=== PATIENT | female | born 1995 | race Caucasian/White ===

== ENCOUNTER 2017-07-26 10:41 | Inpatient (IN) | payer OTHER ==
[~2017-07-26] VITALS: Ht 172.7 cm; Wt 63.5 kg
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
[2017-07-26] MEDS ORDERED: ONDANSETRON HCL/PF 4 MG/2 ML VIAL ONE ×2 (11:15→12:26)
[2017-07-26] MEDS ORDERED: MORPHINE SULFATE INJ 2 MG/ML DISP.SYRIN ONE (11:15)
--- NOTE | 2017-07-26 11:25 | NUR ---
RAC #20 IV ACCESS BLOOD SAMPLE COLLECTEDS ENT TO LAB
[2017-07-26] MEDS ORDERED: ONDANSETRON HCL/PF 4 MG/2 ML VIAL IVP ONE (11:30)
[2017-07-26] MEDS ORDERED: MORPHINE SULFATE INJ 2 MG/ML DISP.SYRIN IV ONE (11:30)
[2017-07-26] MEDS ORDERED: IV NS 0.9% 1,000 ML BAG IV ONE (11:30)
[2017-07-26 11:39] LABS: BASOPHILS % (AUTO) 0.3 % (0.0-2.0); EOSINOPHILS % (AUTO) 0.1 % (0.0-6.0); HEMATOCRIT 45 % (33-45); HEMOGLOBIN 15.4 g/dL (11.5-14.8); LYMPHOCYTES # (AUTO) 1.4 /CMM (0.8-4.8); MEAN CORPUSCULAR HEMOGLOBIN 32 PG (26.0-33.0); MEAN CORPUSCULAR HGB CONC 34 g/dl (31.0-36.0); MEAN CORPUSCULAR VOLUME 93 fL (82-100); MONOCYTES # (AUTO) 0.5 /CMM (0.1-1.30); MONOCYTES % (AUTO) 4.4 % (2.0-12.0); NEUTROPHILS # (AUTO) 8.8 /CMM (1.8-8.9); NEUTROPHILS % (AUTO) 82.2 % (43.0-81.0); PLATELET COUNT (AUTO) 250 /CMM (150-450); RDW COEFFICIENT OF VARIATION 12.8 (11.5-15.0); RED BLOOD CELL COUNT(AUTO) 4.86 MIL/uL (4.0-5.2); WHITE BLOOD COUNT (AUTO) 10.7 K/uL (4.3-11.0)
[2017-07-26 11:51] LABS: CALCIUM, SERUM 9.5 mg/dL (8.5-10.1); CREATININE 0.9 mg/dL (0.6-1.3); POTASSIUM 3.4 mmol/L (3.5-5.1)
[2017-07-26 11:53] LABS: INR 0.93 (0.87-1.13); PROTHROMBIN TIME 9.7 SECS (9.5-12.7)
[2017-07-26 11:58] LABS: ALBUMIN 4.7 g/dL (3.4-5.0); BILIRUBIN,DIRECT 0.1 mg/dL (0.0-0.2); BILIRUBIN,TOTAL 0.8 mg/dL (0.2-1.0); TOTAL PROTEIN, SERUM 8.5 g/dL (6.4-8.2)
[2017-07-26] MEDS ORDERED: IOHEXOL-300 100 ML VIAL IV ONE (12:25)
[2017-07-26] MEDS ORDERED: IV NS 0.9% 250 ML IV ONE (12:25)
[2017-07-26] MEDS ORDERED: HYDROMORPHONE 1 MG/1 ML DISP.SYRIN ONE (12:26)
[2017-07-26] MEDS ORDERED: HYDROMORPHONE 1 MG/1 ML DISP.SYRIN IV ONE (12:30)
[2017-07-26] MEDS ORDERED: ONDANSETRON HCL/PF - ER 4 MG/2 ML VIAL IV ONE (12:30)
--- NOTE | 2017-07-26 12:30 | NUR ---
PT TAKENT TO CT
--- NOTE | 2017-07-26 13:14 | NUR ---
CALLED [facility], I REQUESTED FOR DIRECTOR FINANCIAL ANALYSIS SPINE SURGERY MD, THEY NOTIFIED ME THAT THEY WILL PAGE THE DIRECTOR FINANCIAL ANALYSIS, NESTOR GILLIAM.
--- NOTE | 2017-07-26 13:45 | NUR ---
URINE SAMPLE COLLECTED SENT TO LAB
--- NOTE | 2017-07-26 13:48 | NUR ---
CALLED [employer], SETTER JUICE PACKAGING MACHINES WAS PAGED.
[2017-07-26 13:50] LABS: APPEARANCE,URINE Clear (CLEAR); BILIRUBIN,URINE Negative (NEGATIVE); BLOOD, URINE Negative Ery/uL (NEGATIVE); COLOR,URINE Yellow (YELLOW); KETONES,URINE Trace (NEGATIVE); LEUKOCYTE ESTERASE ,URINE Negative (NEGATIVE); NITRITE, URINE Negative (NEGATIVE); PH,URINE 7.5 (5.0-8.0); PROTEIN,URINE Negative (NEGATIVE); UGLUCOSE Negative (NEGATIVE); UROBILINOGEN,URINE 0.2 EU/dL (0.2)
[2017-07-26] MEDS ORDERED: NORE-83 PO (13:52)
--- NOTE | 2017-07-26 14:35 | NUR ---
311-1 MS NURSE HAKEEM
--- NOTE | 2017-07-26 14:41 | NUR ---
GAVE REPORT TO MARK RUIZ MEDSURG DR POTTER ADMITTING LUMBAR FX DX ROOM 311-1
[2017-07-26 15:00] VITALS: BP 115/69
--- NOTE | 2017-07-26 15:00 | NUR ---
MS RN ADMITTING NOTE PATIENT CAME TO THE UNIT ACCOMPANIED BY GARMENT MANUFACTURER IN STABLE CONDITION. 21 Y/O FEMALE, ALERT, ORIENTED X4, ANXIOUS. PRESENTS WITH NON LABORED BREATHINGS. CHEST IS RAISING EQUALLY, BILATERALLY. REPORTS PAIN RATING 5/10 IN LOWER BACK AREA. PATIENT IS SAFELY MOVED TO BED. BED IS LOCKED, IN LOWEST POSITION, SIDE RAILS UP X2. PATIENT IS EDUCATION ON HOW TO USE CALL LIGHT VIA TEACH BACK METHOD. VERBALIZED UNDERSTANDING. ALL NEEDS ARE ATTENDED TO. WILL CONTINUE TO MONITOR AND ASSESS.
--- NOTE | 2017-07-26 15:16 | NUR ---
MS RN NOTE CALLED [employer] AND LEFT A MESSAGE FOR DR. POTTER INFORMING OF PATIENT'S ARRIVAL.
[2017-07-26 15:30] VITALS: BP 115/69
[2017-07-26] MEDS ORDERED: ACETAMINOPHEN 325 MG TABLET PO PRN (15:30)
[2017-07-26] MEDS ORDERED: Z GUARD REMEDY 2 OZ OINT TP PRN (15:30)
[2017-07-26] MEDS ORDERED: MAGNESIUM HYDROXIDE 30 ML UDC PO PRN (15:30)
[2017-07-26] MEDS ORDERED: MAG HYDROX/AL HYDROX/SIMETH 30 ML UDC PO PRN (15:30)
[2017-07-26] MEDS ORDERED: ZOLPIDEM TARTRATE 5 MG TABLET PO PRN (15:30)
[2017-07-26] MEDS ORDERED: ONDANSETRON HCL/PF 4 MG/2 ML VIAL IVP PRN (15:30)
[2017-07-26] MEDS ORDERED: MORPHINE SULFATE INJ 2 MG/ML DISP.SYRIN IV PRN (15:30)
[2017-07-26] MEDS: ENOXAPARIN SODIUM 40 MG/0.4 ML DISP.SYRIN SQ SCH (16:29)
--- NOTE | 2017-07-26 18:38 | NUR ---
MS RN NOTE CALLED [employer] TO REPORT ABOUT ORTHO CONSULT RESULTS TO DR POTTER. AWAITING A RETURN CALL FOR THE DOCTOR
--- NOTE | 2017-07-26 18:56 | NUR ---
MS RN CLOSING NOTE PATIENT IS RESTING IN BED AWAKE, ALERT WITH THE FRIEND AT THE BEDSIDE. BED IS LOCKED AT LOWEST POSITION, SIDE RAILS UP X 2. CALL LIGHT WITHIN REACH. ALL NEEDS ATTENDED TO. WILL ENDORSE TO THE TOOLS AND PARTS ATTENDANT NURSE FOR DEEJAY.
[2017-07-26 20:27] VITALS: BP 114/64
[2017-07-26] MEDS: HYDROCODONE/APAP 10/325MG 1 EA TABLET PO PRN (20:50)
--- NOTE | 2017-07-26 21:27 | NUR ---
A/a/o times 4 pleasant and coopertive no distress noted or voiced
--- NOTE | 2017-07-26 22:00 | NUR ---
MS/RN ASSUMED CARE FOR CONTINUITY OF CARE. PATIENT AWAKE, ALERT, ORIENTED, COMFORTABLE, NO C/O PAIN AT THIS TIME, NO DISTRESS NOTED, CALL LIGHT IN REACH. WILL MONITOR.
[2017-07-27] MEDS: HYDROCODONE/APAP 5/325MG 1 EACH TABLET PO PRN ×3 (00:54→18:18)
--- NOTE | 2017-07-27 01:59 | NUR ---
MS/RN PATIENT IS SLEEPING AT THIS TIME, AROUSABLE, APPEAR COMFORTABLE, NO SIGNS OF DISTRESS NOTED, CALL LIGHT IN REACH. WILL CONTINUE TO MONITOR.
--- NOTE | 2017-07-27 06:12 | NUR ---
MS/RN STILL SLEEPING, AROUSABLE, COMFORTABLE, BREATHING EVEN AND UNLABORED. ALL NEEDS ATTENDED AT THIS TIME. WILL CONTINUE TO MONITOR.
--- NOTE | 2017-07-27 07:39 | NUR ---
MS RN: INITIAL NOTE RECEIVED PT A/OX4. NO DISTRESS NOTED. NO PAIN NOTED. ON ROOM AIR. NO SOB NOTED.IS ON BEDREST. USES BEDPAN. ON FALL RISK. IV ON R AC #20 HEP LOCK. NO IV FLUIDS RUNNING. ON REGULAR/VEGAN DIET. RESTING COMFORTABLY IN BED. CALL LIGHT WITHIN REACH.
[2017-07-27 07:59] LABS: BASOPHILS % (AUTO) 0.6 % (0.0-2.0); EOSINOPHILS % (AUTO) 0.7 % (0.0-6.0); HEMATOCRIT 38 % (33-45); LYMPHOCYTES # (AUTO) 1.9 /CMM (0.8-4.8); LYMPHOCYTES % (AUTO) 33.7 % (20.0-44.0); MEAN CORPUSCULAR HEMOGLOBIN 32 PG (26.0-33.0); MEAN CORPUSCULAR HGB CONC 35 g/dl (31.0-36.0); MEAN CORPUSCULAR VOLUME 94 fL (82-100); MONOCYTES # (AUTO) 0.5 /CMM (0.1-1.30); MONOCYTES % (AUTO) 9.8 % (2.0-12.0); NEUTROPHILS # (AUTO) 3.1 /CMM (1.8-8.9); NEUTROPHILS % (AUTO) 55.2 % (43.0-81.0); PLATELET COUNT (AUTO) 203 /CMM (150-450); RDW COEFFICIENT OF VARIATION 12.6 (11.5-15.0); RED BLOOD CELL COUNT(AUTO) 4.01 MIL/uL (4.0-5.2); WHITE BLOOD COUNT (AUTO) 5.6 K/uL (4.3-11.0)
[2017-07-27 08:00] VITALS: BP 106/61
[2017-07-27 08:23] LABS: THYROID STIMULATING HORMONE 4.701 uIU/mL (0.358-3.74)
[2017-07-27 08:25] LABS: CALCIUM, SERUM 8.1 mg/dL (8.5-10.1); CREATININE 0.9 mg/dL (0.6-1.3); MAGNESIUM 1.9 mg/dL (1.8-2.4); PHOSPHORUS 4.6 mg/dL (2.5-4.9); POTASSIUM 4.1 mmol/L (3.5-5.1)
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
[2017-07-27] MEDS: ENOXAPARIN SODIUM 40 MG/0.4 ML DISP.SYRIN SQ SCH (15:29)
--- NOTE | 2017-07-27 15:32 | NUR ---
PT TAKEN TO NUCLEAR MEDICINE FOR MRI OF SPINE. PT STABLE.
[2017-07-27 16:00] VITALS: BP 112/65
--- NOTE | 2017-07-27 16:29 | NUR ---
PT RETURNED FROM MRI OF SPINE. PT STABLE. NO PAIN NOTED. RESTING IN BED COMFORTABLY
--- NOTE | 2017-07-27 18:36 | NUR ---
MS RN: CLOSING NOTE PT A/OX4. NO DISTRESS NOTED. PAIN CONTROLLED WITH PAIN MANAGEMENT. TOOK ALL MEDICATIONS ON TIME. NO ADVERSE REACTIONS NOTED. NO N/V NOTED. BEDREST. SKIN INTACT. USING BEDPAN. R AC #20 HEP LOCK. MRI COMPLETE. FATHER AT BEDSIDE. FATHER WANTED TO D/C DAUGHTER HOME BEFORE BEING SEEN BY MD BEST. CHARGE NURSE NOTIFIED. EXPLAINED RISKS AND BENEFITS. MD BEST SPOKE TO FATHER AND INFORMED HIM ABOUT THE NEED FOR NUEROSURGEON CONSULT BEFORE D/C. CONTACTED MD POTTS FOR CONSULTATION. ORDERED MRI AND BACK BRACE. BACK BRACE COULD NOT BE PROVIDED DUE TO SUPPLIER BEING CLOSED ON WEEKENDS. FAXED ALL INFORMATION, CALLED AND LEFT A MSG. MD POTTS STATED PT CAN BE D/C HOME WITH SOFT BACK BRACE AND FOLLOW UP WITH HIM IN ONE WEEK AND HE WILL BE COMING INTO [place] BY 8PM TONIGHT IF THEY CHOOSE TO WAIT. FATHER DECIDED TO TRANSFER DAUGHTER TO [facility]. ALL INFORMATION ABOUT TRANSFER GIVEN TO PATIENT AND FATHER. FATHER DECIDED TO WAIT FOR NEURO SURGEON TO COME. CONTACTED MD BEST AND GOT AN ORDER FOR D/C. CONTACTED MD POTTS AND NOTIFIED HIM THAT FATHER AND PATIENT WILL BE WAITING TO SEE HIM. REPORT WILL BE GIVEN TO NEXT SHIFT NURSE. PT IS RESTING COMFORTABLY IN BED. CALL LIGHT WITHIN REACH.
[2017-07-27 20:00] VITALS: BP 111/73
[2017-07-27] MEDS: HYDROCODONE/APAP 10/325MG 1 EA TABLET PO PRN (22:09)
--- NOTE | 2017-07-28 06:01 | NUR ---
2000:patient aao4, vss, no s/s of distress, c/o of pain to back relieved with pain medication (see emar). DC orders written. Patient to leave with back brace after being seen by neuro. Per prior shift, attempts to provide back brace unsuccessful. Neuro MD made aware and soft brace provided. 0700: discharge pending back brace. patient and family aware. MD aware. will endorse do oncoming RN
[2017-07-28 06:59] LABS: BASOPHILS # (AUTO) 0.1 /CMM (0.0-0.2); BASOPHILS % (AUTO) 0.8 % (0.0-2.0); EOSINOPHILS # (AUTO) 0.1 /CMM (0.0-0.7); EOSINOPHILS % (AUTO) 1.7 % (0.0-6.0); HEMATOCRIT 39 % (33-45); HEMOGLOBIN 13.4 g/dL (11.5-14.8); LYMPHOCYTES # (AUTO) 2.2 /CMM (0.8-4.8); MEAN CORPUSCULAR HEMOGLOBIN 32 PG (26.0-33.0); MEAN CORPUSCULAR HGB CONC 34 g/dl (31.0-36.0); MEAN CORPUSCULAR VOLUME 92 fL (82-100); MONOCYTES # (AUTO) 0.6 /CMM (0.1-1.30); MONOCYTES % (AUTO) 9.2 % (2.0-12.0); NEUTROPHILS # (AUTO) 3.5 /CMM (1.8-8.9); NEUTROPHILS % (AUTO) 54.3 % (43.0-81.0); PLATELET COUNT (AUTO) 201 /CMM (150-450); RDW COEFFICIENT OF VARIATION 12.3 (11.5-15.0); RED BLOOD CELL COUNT(AUTO) 4.21 MIL/uL (4.0-5.2); WHITE BLOOD COUNT (AUTO) 6.4 K/uL (4.3-11.0)
--- NOTE | 2017-07-28 07:05 | NUR ---
MS RN OPENING NOTES RECEIVED PT FROM NIGHTSHIFT NURSE IN STABLE CONDITION. PT IS A/O X4. NO SOB OR SIGNS OF DISTRESS NOTED. BREATHING IS EVEN AND UNLABORED. PT IS BEDREST AT THIS TIME DUE TO LOWER BACK INJURY. IV PRESENT ON RIGHT AC 20G. IV IS PATENT AND INTACT. NO REDNESS OR SIGNS OF INFILTRATION NOTED. PT IS CURRENTLY AWAITING TLSO BACK BRACE. WILL FOLLOW UP WITH DISTRIBUTING COMPANY, HOWEVER ACCORDING TO THE NIGHTSHIFT NURSE AND PREVIOUS DAY SHIFT NURSE, THE COMPANY IS CLOSED ON THE WEEKEND. ACCORDING TO DR. DORMAN, PT CAN NOT BE D/C WITHOUT A BRACE. BED IN LOW LOCKED POSITION, SIDE RAILS UP X2, CALL LIGHT WITHIN REACH, BED ALARM ON. WILL CONTINUE TO MONITOR.
[2017-07-28 07:13] LABS: CALCIUM, SERUM 8.7 mg/dL (8.5-10.1); CREATININE 0.8 mg/dL (0.6-1.3); MAGNESIUM 1.7 mg/dL (1.8-2.4); PHOSPHORUS 4.9 mg/dL (2.5-4.9); POTASSIUM 3.9 mmol/L (3.5-5.1)
[2017-07-28 08:00] VITALS: BP 111/69
[2017-07-28] MEDS ORDERED: HYDR-3658 PO (10:14)
[2017-07-28] MEDS ORDERED: DOCU-25 PO (10:14)
--- NOTE | 2017-07-28 10:31 | NUR ---
MS RN NOTES PT INSTRUCTED MULTIPLE TIMES TO STAY IN BED, CALL FOR ASSISTANCE AND USE BED FELTON WHEN NEEDED BUT IS NONCOMPLIANT. SHE INSISTS ON INDEPENDENTLY DOING HER ADLS ALONG WITH GOING TO THE BATHROOM BY HERSELF. BED IN LOW LOCKED POSITION, BED ALARM ON, CALL LIGHT WITHIN REACH. WILL CONTINUE TO MONITOR FOR SAFETY
[2017-07-28] MEDS: Magnesium 1GM/D5W 100ML PREMIX 100 ML IV SCH ×2 (10:40→11:58)
--- NOTE | 2017-07-28 13:20 | NUR ---
MS MANAGER FRONT OFFICE NOTES PT LEFT FACILITY IN STABLE CONDITION WITH BRACE ON. ALL NEEDS WERE MET DURING SHIFT AND ORDERS CARRIED OUT ACCORDINGLY. PT. WAS SEEN BY PHYSICAL THERAPY BEFORE LEAVING WHO INSTRUCTED HER ON PROPER BACK BRACE USE. PT VERBALIZED UNDERSTANDING OF INSTRUCTIONS ALONG WIT ALL DISCHARGE INSTRUCTIONS. PT SIGNED ALL DISCHARGE PAPERWORK. SHE LEFT VIA PRIVATE VEHICLE DRIVEN BY HER FATHER.
== END 2017-07-28 13:20 | disposition home health service (06) | DRG 552 ==
LOC: ER 10:42 → MED 14:46
PROVIDERS: ADMIT Internal Medicine; ATTEND Internal Medicine
DX: S32.019A Unspecified fracture of first lumbar vertebra, initial encounter for closed fracture (principal); E83.42 Hypomagnesemia; E87.6 Hypokalemia; V43.52XA Car driver injured in collision with other type car in traffic accident, initial encounter; Y93.9 Activity, unspecified; Y92.410 Unspecified street and highway as the place of occurrence of the external cause
CPT/HCPCS: 36415; 71010-TC; 72131-TC; 72148-TC; 80048-TC; 80076-TC; 81000-TC; 83735-TC; 84100-TC; 84443-TC; 84703-TC; 85025-TC; 85730-TC; 86850-TC; 87081-TC; A4606; J1170; J1650; J2270; J2405; J3475; J7030; J7050; Q9967; Z7610